=== PATIENT | female | born 1955 | race Caucasian/White ===

== ENCOUNTER 2017-09-24 13:10 | Emergency (ER) | payer BC ==
[2017-09-24] MEDS ORDERED: ONDANSETRON HCL IV 4 MG/2 ML VIAL IV ONE (13:57)
[2017-09-24] MEDS ORDERED: HYDROMORPHONE HCL 2 MG/ML VIAL IVP ONE (13:57)
[2017-09-24] MEDS ORDERED: 0.9 % SODIUM CHLORIDE 1,000 ML BAG IV ONE (13:57)
--- NOTE | 2017-09-24 14:01 | Emergency Department Record ---
History of Present Illness - General Chief complaint: Vomiting Stated complaint: VOMITING Time Seen by Provider: 09/24/17 13:51 Source: Patient Mode of Arrival: Ambulatory Limitations: No limitations - History of Present Illness Initial comments: The patient is here due to a one day hx of frequent nausea, vomiting and then upper abdominal pain. She denies any lower AP, back pain, fever, chills, or dysuria. The patient has no hx of bowel obstruction but has had multiple abdominal surgeries. She does have a hx of Ovarian and Breast CA and last had Chemo 3 weeks ago. There is no reported CP, SOB, GUTHRIE, or confusion. MD complaint: Abdominal pain, Nausea, Vomiting Onset/Timin -: Days(s) Description of Vomiting: Watery - Related Data Home Medications Medication Instructions Recorded Confirmed Last Taken Levocetirizine Dihydrochloride 1 tab PO ASDIR PRN 09/24/17 09/24/17 Unknown [Xyzal] Prochlorperazine Maleate 10 mg PO DAILY 09/24/17 09/24/17 Unknown Promethazine HCl [Phenergan] 12.5 mg PO Q6HR PRN 09/24/17 09/24/17 Unknown Trazodone HCl 50 mg PO QHS 09/24/17 09/24/17 Unknown Warfarin Sodium 1 mg PO DAILY 09/24/17 09/24/17 Unknown Previous Rx's Medication Instructions Recorded Hydrocodone/Acetaminophen [[place] 1 tab PO Q6H PRN #10 tab 06/04/15 5mg/325mg] Sucralfate [Carafate] 1 gm PO QID #28 tablet 09/24/17 Allergies Allergy/AdvReac Type Severity Reaction Status Date / Time adhesive Allergy RASH Verified 09/24/17 14:10 bacitracin Allergy SWELLING Verified 09/24/17 14:10 [From Neosporin (GENERAL) ([id number])] bacitracin zinc Allergy SWELLING Verified 09/24/17 14:10 [From Neosporin (GENERAL) ([id number])] neomycin sulfate Allergy SWELLING Verified 09/24/17 14:10 [From Neosporin (GENERAL) ([id number])] polymyxin B Allergy SWELLING Verified 09/24/17 14:10 [From Neosporin (GENERAL) ([id number])] Travel Screening - Travel/Exposure Within Last 30 Days Have you traveled within the last 30 days?: No - Travel/Exposure Within Last Year Have you traveled outside the [place] in the last year?: No - Additonal Travel Details Have you been exposed to anyone with a communicable illness?: No - Travel Symptoms Symptom Screening: None Review of Systems Constitutional: Denies: Chills, Fever Eyes: Denies: Eye discharge ENT: Denies: Congestion Respiratory: Denies: Cough, Dyspnea Cardiovascular: Denies: Arrhythmia Endocrine: Denies: Fatigue Gastrointestinal: Reports: Abdominal pain, Nausea, Vomiting. Denies: Diarrhea, Other Genitourinary: Denies: Dysuria Musculoskeletal: Denies: Back pain Past Medical History - SOCIAL HISTORY Smoking Status: Light tobacco smoker (<10/day) Alcohol Use: None Drug Use: None - RESPIRATORY Hx Respiratory Disorders: Yes Hx Asthma: Yes - CARDIOVASCULAR Hx Cardio Disorders: Yes Comment:: murmur - NEURO Hx Neuro Disorders: No - GI Hx GI Disorders: Yes Hx Abdominal Pain: Yes Hx Nausea/Vomiting: Yes (vomits almost everyday, sometimes for hours) - Hx Genitourinary Disorders: Yes Hx UTI: Yes - ENDOCRINE Hx Endocrine Disorders: No Comment:: nodule on thyroid - MUSCULOSKELETAL Hx Musculoskeletal Disorders: No - PSYCH Hx Psych Problems: Yes Hx Anxiety: Yes Hx Depression: Yes - HEMATOLOGY/ONCOLOGY Hx Hematology/Oncology Disorders: Yes Hx Cancer: Yes (Right breast, ovarian) Hx Chemotherapy: Yes Family Medical History Any Significant Family History?: Yes Hx Alcohol Use: Brother/Sister Hx Anxiety: Mother, Brother/Sister Hx Cancer: Mother, Brother/Sister, Grandparents Hx Dementia: Grandparents Hx Depression: Mother, Brother/Sister Hx Diabetes: Brother/Sister, Grandparents Hx Resp Disorders: Father Physical Exam - General General Appearance: Alert, Oriented x3, Cooperative, No acute distress - Head Head exam: Atraumatic, Normocephalic, Normal inspection - Eye Eye exam: Normal appearance, PERRL, EOMI - Neck Neck exam: Normal inspection, Full ROM. negative: Tenderness - Respiratory Respiratory exam: Normal lung sounds bilaterally. negative: Respiratory distress - Cardiovascular Cardiovascular Exam: Regular rate, Normal rhythm, Normal heart sounds - GI/Abdominal GI/Abdominal exam: Soft, Tenderness (There is diffuse upper abdominal tenderness.). negative: Distended, Guarding, Rebound, Rigid - Extremities Extremities exam: Normal inspection, Full ROM, Normal capillary refill. negative: Tenderness - Neurological Neurological exam: Alert, Normal gait. negative: Abnormal gait, Motor sensory deficit Course Vital Signs 09/24/17 13:41 Temperature 98.6 F Pulse Rate 92 H Respiratory 16 Rate Blood Pressure 165/85 Pulse Ox 95 - Reevaluation(s) Reevaluation #1: The patient is doing much better at this time. Her AP and nausea are now gone and she is feeling (MUCH) better. On exam her abdomen is very soft and nontender in all 4 quads. I did discuss the need for recheck with her PCP later this week. I also did discuss the blood in the urine which is not a new issue for her but it is slightly worse. She is to see her PCP Dr. Don for recheck later this week and possibly have a Urology Consultation. 09/24/17 16:05 Medical Decision Making - Data Complexity MDM Data: Labs Ordered and/or Reviewed, X-Ray Ordered and/or Reviewed - Lab Data Result diagrams: 09/24/17 14:40 09/24/17 14:40 - Radiology Data Radiology results: Report reviewed (Abd CT: Neg for any acute abnormality. Neg kidney stone, hydro or masses.) Disposition Disposition: Discharge Clinical Impression: Abdominal pain Qualifiers: Abdominal location: unspecified location Qualified Code(s): R10.9 - Unspecified abdominal pain Vomiting Qualifiers: Vomiting type: unspecified Vomiting Intractability: non-intractable Nausea presence: without nausea Qualified Code(s): R11.11 - Vomiting without nausea Disposition: Home, Self-Care Condition: (2) Stable Instructions: Acute Nausea and Vomiting (ED) Additional Instructions: Please continue your regular medicines and add the Carafate as directed. Please see your family doctor later this week for recheck and please show him the blood in the urine. Take your medicines for nausea and return to the ER for any return of the AP, or vomiting, or any fever. Prescriptions: Sucralfate [Carafate] 1 gm PO QID #28 tablet Forms: Patient Portal Access Time of Disposition: 16:13 Quality - Quality Measures Quality Measures: N/A - Blood Pressure Screening View Details: Yes Does Patient Have Any of the Following: No Blood Pressure Classification: Normal BP Reading Systolic Measurement: 117 Diastolic Measurement: 70 Screening for High Blood Pressure: < Normal BP, F/U Not Required > [G9846]
[2017-09-24 14:54] LABS: HEMATOCRIT 28.9 % (35.0-47.0); HEMOGLOBIN 9.3 gm/dl (11.6-16.0); MEAN CELL VOLUME 111.6 fl (81-97); MEAN CORPUSCULAR HEMOGLOBIN 35.9 pg (27-33); MEAN CORPUSCULAR HGB CONC 32.2 g/dl (32-36); MEAN PLATELET VOLUME 8.8 fl (7.4-10.4); PLATELET COUNT 125 K/uL (130-400); RED BLOOD COUNT 2.59 M/uL (3.80-5.40); RED CELL DISTRIBUTION WIDTH 16.3 % (11.5-14.5); WHITE BLOOD COUNT W/O DIFF 7.8 K/uL (4.2-12.2)
[2017-09-24 15:03] LABS: PLATELET ESTIMATE NORMAL (NORMAL)
[2017-09-24 15:04] LABS: ANISOCYTOSIS 1+; HYPOCHROMIA 1+
[2017-09-24 15:07] LABS: BLOOD UREA NITROGEN 8 mg/dL (8-23)
[2017-09-24 15:08] LABS: CREATININE 0.5 mg/dL (0.5-0.9); EST GLOMERULAR FILTRATION RATE > 60 mL/min; TOTAL PROTEIN 7.2 g/dL (6.6-8.7)
[2017-09-24 15:10] LABS: GLUCOSE,RANDOM 152 mg/dL (74-109)
[2017-09-24 15:13] LABS: ALBUMIN 4.5 g/dL (4.0-5.0); ALKALINE PHOSPHATASE 61 U/L (35-104); ALT/SGPT 16 U/L (<33); AST/SGOT 15 U/L (10.0-35.0); LIPASE 13 U/L (13-60)
[2017-09-24 15:15] LABS: BILIRUBIN,DIRECT < 0.2 mg/dL (0-0.3)
[2017-09-24] MEDS ORDERED: POTASSIUM CHLORIDE 20 MEQ/15ML CUP PO ONE (15:23)
[2017-09-24 15:37] LABS: INR 2.3; PARTIAL THROMBOPLASTIN TIME 36.9 SECONDS (24.5-39.1); PROTHROMBIN TIME (PATIENT) 24.6 SECONDS (9.5-12.1)
[2017-09-24] MEDS ORDERED: SUCRALFATE 1 G/10 ML UD PO ONE (15:41)
[2017-09-24 15:50] LABS: URINE APPEARANCE CLEAR; URINE BILIRUBIN NEGATIVE (NEGATIVE); URINE BLOOD LARGE (NEGATIVE); URINE COLOR YELLOW; URINE GLUCOSE (UA) NEGATIVE (NEGATIVE); URINE KETONE TRACE (NEGATIVE); URINE LEUKOCYTE ESTERASE NEGATIVE (NEGATIVE); URINE NITRITE NEGATIVE (NEGATIVE)
[2017-09-24 15:56] LABS: URINE RBC >50 (NONE SEEN); URINE WBC NONE SEEN (0-2/hpf)
[2017-09-24] MEDS ORDERED: HEPARIN SODIUM FLUSH 100 UNITS/ML SYR 5ML IVP ONE (16:05)
--- NOTE | 2017-09-25 07:53 | CT SCAN REPORT ---
EXAM: CT OF THE ABDOMEN AND PELVIS WITHOUT CONTRAST HISTORY: UPPER ABDOMINAL PAIN. TECHNIQUE: CT of the abdomen and pelvis was performed without oral or IV contrast. This limits evaluation of the bowel and solid visceral organs. Comparison: Prior CT 03/15/17. FINDINGS: Limited evaluation of the lung bases is unremarkable. The osseous structures are grossly intact. Small hiatal hernia. Fatty infiltrative change to the liver. Limited evaluation of the spleen, adrenal glands, pancreas and kidneys is unremarkable. Surgical clips in the retroperitoneum. The gallbladder is present. Fat containing anterior abdominal wall hernia near the midline. No gross evidence for bowel obstruction. No free air or free fluid. Sigmoid diverticulosis. No CT evidence for diverticulitis. Surgical clips left inguinal region. There is a normal appendix. No pericecal inflammation. IMPRESSION: 1. SIGMOID DIVERTICULOSIS. NO CT EVIDENCE FOR DIVERTICULITIS. 2. POST SURGICAL CHANGES. 3. FATTY INFILTRATIVE CHANGE TO THE LIVER. 4. SMALL HIATAL HERNIA. FAT CONTAINING ANTERIOR ABDOMINAL WALL HERNIA NEAR THE MIDLINE. JOB NUMBER: [id number] MTDD
== END 2017-09-24 16:31 | disposition home or self-care (01) ==
LOC: ER 13:10
DX: R10.10 Upper abdominal pain, unspecified (principal); R11.2 Nausea with vomiting, unspecified; R31.29 Other microscopic hematuria; C50.919 Malignant neoplasm of unspecified site of unspecified female breast; C79.60 Secondary malignant neoplasm of unspecified ovary; F17.210 Nicotine dependence, cigarettes, uncomplicated
CPT/HCPCS: 99284 ×2; 96374; 96375; 96361; 83690; 85730; 85610; 80076; 80048; 81001; 85027; 74176; J2405; J1642; J1170; J7030

== ENCOUNTER 2017-09-27 09:36 | Observation (INO) | payer BC ==
[2017-09-27] MEDS ORDERED: ONDANSETRON HCL IV 4 MG/2 ML VIAL IV ONE (09:59)
[2017-09-27] MEDS ORDERED: 0.9 % SODIUM CHLORIDE 1,000 ML BAG IV ONE (09:59)
[2017-09-27] MEDS ORDERED: PROMETHAZINE HCL 25 MG in 0.9 % SODIUM CHLORIDE 100ML 100 ML IVPB ONE (10:10)
[2017-09-27] MEDS ORDERED: HYDROMORPHONE HCL 2 MG/ML VIAL IVP ONE ×3 (10:10→12:10)
--- NOTE | 2017-09-27 10:12 | Emergency Department Record ---
History of Present Illness - General Chief complaint: Vomiting Stated complaint: VOMITING Time Seen by Provider: 09/27/17 09:48 Source: Patient, RN notes reviewed Mode of Arrival: Ambulatory - History of Present Illness Initial comments: patient states epigastric abdominal pain which stated at midnight last night and similiar thing happened 3 days ago and was here monday and had a CT scan of abd which was negative than and her potassium slightly low and she was given potassium 40 mcq monday and she takes potassium pills. Onset/Timin -: Days(s) Description of Vomiting: Watery Severity: Moderate Severity scale (1-10): 10 Quality: Aching - Related Data Previous Rx's Medication Instructions Recorded Hydrocodone/Acetaminophen [[place] 1 tab PO Q6H PRN #10 tab 06/04/15 5mg/325mg] Sucralfate [Carafate] 1 gm PO QID #28 tablet 09/24/17 Allergies Allergy/AdvReac Type Severity Reaction Status Date / Time adhesive Allergy RASH Verified 09/27/17 09:48 bacitracin Allergy SWELLING Verified 09/27/17 09:48 [From Neosporin (GENERAL) ([id number])] bacitracin zinc Allergy SWELLING Verified 09/27/17 09:48 [From Neosporin (GENERAL) ([id number])] neomycin sulfate Allergy SWELLING Verified 09/27/17 09:48 [From Neosporin (GENERAL) ([id number])] polymyxin B Allergy SWELLING Verified 09/27/17 09:48 [From Neosporin (GENERAL) ([id number])] Travel Screening - Travel/Exposure Within Last 30 Days Have you traveled within the last 30 days?: No - Travel/Exposure Within Last Year Have you traveled outside the [place] in the last year?: No - Additonal Travel Details Have you been exposed to anyone with a communicable illness?: No - Travel Symptoms Symptom Screening: None Review of Systems Reviewed: No additional complaints except as noted below Constitutional: Reports: As per HPI. Denies: Chills, Fever, Malaise, Night sweats, Weakness, Weight change Eyes: Reports: As per HPI. Denies: Eye discharge, Eye pain, Photophobia, Vision change ENT: Reports: As per HPI. Denies: Congestion, Dental pain, Ear pain, Epistaxis , Hearing loss, Throat pain Respiratory: Reports: As per HPI. Denies: Cough, Dyspnea, Hemoptysis, Stridor, Wheezes Cardiovascular: Reports: As per HPI. Denies: Arrhythmia, Chest pain, Dyspnea on exertion, Edema, Murmurs, Orthopnea, Palpitations, Paroxysmal nocturnal dyspnea, Rheumatic Fever, Syncope Endocrine: Reports: As per HPI. Denies: Fatigue, Heat or cold intolerance, Polydipsia, Polyuria Gastrointestinal: Reports: As per HPI, Abdominal pain, Nausea, Vomiting. Denies : Constipation, Diarrhea, Hematemesis, Hematochezia, Melena Genitourinary: Reports: As per HPI. Denies: Abnormal menses, Discharge, Dyspareunia, Dysuria, Frequency, Hematuria, Incontinence, Retention, Urgency Musculoskeletal: Reports: As per HPI. Denies: Arthralgia, Back pain, Gout, Joint swelling, Myalgia, Neck pain Skin: Reports: As per HPI. Denies: Bruising, Change in color, Change in hair/ nails, Lesions, Pruritus, Rash Neurological: Reports: As per HPI. Denies: Abnormal gait, Confusion, Headache, Numbness, Paresthesias, Seizure, Tingling, Tremors, Vertigo, Weakness Psychiatric: Reports: As per HPI. Denies: Anxiety, Auditory hallucinations, Depression, Homicidal thoughts, Suicidal thoughts, Visual hallucinations Hematological/Lymphatic: Reports: As per HPI. Denies: Anemia, Blood Clots, Easy bleeding, Easy bruising, Swollen glands Past Medical History - SOCIAL HISTORY Smoking Status: Former smoker - RESPIRATORY Hx Respiratory Disorders: Yes Hx Asthma: Yes - CARDIOVASCULAR Hx Cardio Disorders: Yes Comment:: murmur - NEURO Hx Neuro Disorders: No - GI Hx GI Disorders: Yes Hx Abdominal Pain: Yes Hx Nausea/Vomiting: Yes (vomits almost everyday, sometimes for hours) - Hx Genitourinary Disorders: Yes Hx UTI: Yes - ENDOCRINE Hx Endocrine Disorders: No Comment:: nodule on thyroid - MUSCULOSKELETAL Hx Musculoskeletal Disorders: No - PSYCH Hx Psych Problems: Yes Hx Anxiety: Yes Hx Depression: Yes - HEMATOLOGY/ONCOLOGY Hx Hematology/Oncology Disorders: Yes Hx Cancer: Yes (Right breast, ovarian) Hx Chemotherapy: Yes (08/2017) Family Medical History Any Significant Family History?: Yes Hx Alcohol Use: Brother/Sister Hx Anxiety: Mother, Brother/Sister Hx Cancer: Mother, Brother/Sister, Grandparents Hx Dementia: Grandparents Hx Depression: Mother, Brother/Sister Hx Diabetes: Brother/Sister, Grandparents Hx Resp Disorders: Father Physical Exam - General General Appearance: Alert, Oriented x3, Cooperative, Mild distress - Head Head exam: Normal inspection - Eye Eye exam: Normal appearance, PERRL Pupils: Normal accommodation - ENT ENT exam: Normal exam, Mucous membranes moist, Normal external ear exam, Normal orophraynx, TM's normal bilaterally Ear exam: Normal external inspection. negative: External canal tenderness Nasal Exam: Normal inspection. negative: Discharge, Sinus tenderness Mouth exam: Normal external inspection, Tongue normal Teeth exam: Normal inspection. negative: Dental caries Throat exam: Normal inspection. negative: Tonsillar erythema, Tonsillar exudate - Neck Neck exam: Normal inspection, Full ROM. negative: Tenderness - Respiratory Respiratory exam: Normal lung sounds bilaterally. negative: Respiratory distress - Cardiovascular Cardiovascular Exam: Regular rate, Normal rhythm, Normal heart sounds - GI/Abdominal GI/Abdominal exam: Soft, Normal bowel sounds, Tenderness (epigastric pain). negative: Distended, Guarding, Rebound, Rigid - Rectal Rectal exam: Deferred - exam: Deferred - Extremities Extremities exam: Normal inspection, Full ROM, Normal capillary refill. negative: Tenderness - Back Back exam: Reports: Normal inspection, Full ROM. Denies: Muscle spasm, Rash noted, Tenderness - Neurological Neurological exam: Alert, Normal gait, Oriented X3, Reflexes normal - Psychiatric Psychiatric exam: Normal affect, Normal mood - Skin Skin exam: Dry, Intact, Normal color, Warm Course Vital Signs 09/27/17 09:38 Temperature 98.3 F Pulse Rate 102 H Respiratory 20 Rate Blood Pressure 193/97 Pulse Ox 94 L Medical Decision Making - Lab Data Result diagrams: 09/27/17 10:02 09/27/17 10:02 Disposition Clinical Impression: Hypokalemia, Hypomagnesemia Abdominal pain Qualifiers: Abdominal location: epigastric Qualified Code(s): R10.13 - Epigastric pain Decision to Admit: Admit from ER Condition: (2) Stable Forms: Patient Portal Access Time of Disposition: 12:55 Quality - Quality Measures Quality Measures: N/A - Blood Pressure Screening Does Patient Have Any of the Following: No Blood Pressure Classification: Hypertensive Reading Systolic Measurement: 193 Diastolic Measurement: 97 Screening for High Blood Pressure: < First Hypertensive BP, F/U Documented > [ G8950] First Hypertensive Follow-up Interventions: Referral to alternative/primary care provider.
[2017-09-27 10:17] LABS: HEMATOCRIT 29.9 % (35.0-47.0); HEMOGLOBIN 9.9 gm/dl (11.6-16.0); MEAN CELL VOLUME 109.5 fl (81-97); MEAN CORPUSCULAR HGB CONC 33.1 g/dl (32-36); MEAN PLATELET VOLUME 9.5 fl (7.4-10.4); PLATELET COUNT 150 K/uL (130-400); RED BLOOD COUNT 2.73 M/uL (3.80-5.40); RED CELL DISTRIBUTION WIDTH 15.7 % (11.5-14.5); WHITE BLOOD COUNT W/O DIFF 7.2 K/uL (4.2-12.2)
[2017-09-27] MEDS ORDERED: MAGNESIUM HYDROXIDE/AL HYDROX 30 ML, LIDOCAINE VISC 2% 15ML 15 ML PO ONE ×2 (10:18)
[2017-09-27 10:21] LABS: MEAN CORPUSCULAR HEMOGLOBIN 36.2 pg (27-33)
[2017-09-27 10:30] LABS: BLOOD UREA NITROGEN 8 mg/dL (8-23); CREATININE 0.6 mg/dL (0.5-0.9); EST GLOMERULAR FILTRATION RATE > 60 mL/min
[2017-09-27 10:31] LABS: ANISOCYTOSIS 1+; HYPOCHROMIA 1+; PLATELET ESTIMATE NORMAL (NORMAL); TOTAL PROTEIN 7.3 g/dL (6.6-8.7)
[2017-09-27 10:33] LABS: GLUCOSE,RANDOM 170 mg/dL (74-109)
[2017-09-27 10:35] LABS: ALT/SGPT 20 U/L (<33)
[2017-09-27 10:36] LABS: ALBUMIN 4.5 g/dL (4.0-5.0); ALKALINE PHOSPHATASE 68 U/L (35-104); AST/SGOT 18 U/L (10.0-35.0); BILIRUBIN,DIRECT < 0.2 mg/dL (0-0.3); LIPASE 13 U/L (13-60)
[2017-09-27] MEDS ORDERED: POTASSIUM CHLORIDE 20 MEQ TABLET PO ONE ×2 (11:37→21:09)
[2017-09-27] MEDS ORDERED: MAGNESIUM SULFATE 16 MEQ in 0.9 % SODIUM CHLORIDE 100ML 100 ML IV ONE (11:37)
[2017-09-27] MEDS: SOD CHLOR 0.9% WITH KCL 40MEQ 40 MEQ/1,000 ML IV.SOLN IV ONE ×2 (12:17→16:56)
[2017-09-27 12:40] LABS: URINE APPEARANCE CLEAR; URINE BILIRUBIN NEGATIVE (NEGATIVE); URINE BLOOD LARGE (NEGATIVE); URINE COLOR YELLOW; URINE GLUCOSE (UA) NEGATIVE (NEGATIVE); URINE KETONE NEGATIVE (NEGATIVE); URINE LEUKOCYTE ESTERASE NEGATIVE (NEGATIVE); URINE NITRITE NEGATIVE (NEGATIVE); URINE PROTEIN NEGATIVE (NEGATIVE); URINE UROBILINOGEN 0.2 E.U./dL (0.20 - 1.00)
[2017-09-27 12:45] LABS: URINE EPITHELIAL CELLS 0 - 2 (FEW); URINE WBC NONE SEEN (0-2/hpf)
[2017-09-27] MEDS ORDERED: ONDANSETRON HCL IV 4 MG/2 ML VIAL IVP PRN (14:52)
[2017-09-27] MEDS ORDERED: PROMETHAZINE HCL 25 MG in 0.9 % SODIUM CHLORIDE 100ML 100 ML IVPB PRN (14:52)
[2017-09-27] MEDS ORDERED: SOD CHLOR 0.9% WITH KCL 40MEQ 40 MEQ/1,000 ML IV.SOLN IV ONE (14:52)
[2017-09-27] MEDS ORDERED: ACETAMINOPHEN 325 MG TAB PO PRN (14:52)
[2017-09-27] MEDS ORDERED: HYDROMORPHONE HCL 2 MG/ML VIAL IVP PRN (14:52)
[2017-09-27 17:23] LABS: INR 2.3; PROTHROMBIN TIME (PATIENT) 25.5 SECONDS (9.5-12.1)
[2017-09-27] MEDS ORDERED: TRAZODONE 50 MG TABLET PO SCH (20:30)
[2017-09-27] MEDS ORDERED: WARFARIN 1 MG TABLET PO SCH (20:30)
[2017-09-27] MEDS ORDERED: WARFARIN 5 MG TAB PO SCH (20:30)
[2017-09-27] MEDS ORDERED: BREO (FLUTICASONE/VILANTEROL) 200MCG/25MCG INHALER INH SCH (20:30)
[2017-09-27] MEDS: LORATADINE 10 MG TABLET PO SCH (21:38)
[2017-09-28] MEDS ORDERED: HEPARIN SODIUM FLUSH 100 UNITS/ML SYR 5ML IVP PRN (05:47)
[2017-09-28 06:33] LABS: INR 2.5; PROTHROMBIN TIME (PATIENT) 27.5 SECONDS (9.5-12.1)
[2017-09-28 06:39] LABS: BLOOD UREA NITROGEN 9 mg/dL (8-23); CREATININE 0.7 mg/dL (0.5-0.9); EST GLOMERULAR FILTRATION RATE > 60 mL/min; GLUCOSE,RANDOM 99 mg/dL (74-109)
[2017-09-28 06:56] LABS: ALBUMIN 3.4 g/dL (4.0-5.0); AST/SGOT 18 U/L (10.0-35.0); BILIRUBIN,DIRECT < 0.2 mg/dL (0-0.3); TOTAL PROTEIN 5.7 g/dL (6.6-8.7)
[2017-09-28 06:57] LABS: ALKALINE PHOSPHATASE 51 U/L (35-104); ALT/SGPT 19 U/L (<33); LIPASE 16 U/L (13-60)
--- NOTE | 2017-09-28 07:17 | RADIOLOGY REPORT ---
EXAM: ABDOMEN, TWO VIEWS HISTORY: GENERALIZED ABDOMINAL PAIN WITH NAUSEA AND VOMITING FOR TWO DAYS. HISTORY OF OVARIAN MALIGNANCY. TECHNIQUE: AP supine and upright views of the abdomen were obtained. Comparison: CT of the abdominal and pelvis without contrast dated 09/24/17. FINDINGS: The bowel gas pattern is normal. No mass, organomegaly, or suspicious calcification is seen. Small round calcifications are again noted within the inferior pelvis likely vascular in origin. Surgical clips are scattered within the pelvis, mid to lower paraspinal lumbar region and proximal left thigh. No free intraperitoneal air. There are mild degenerative changes scattered throughout the visualized spine associated with mild levoconvex scoliosis centered at the L2-L3 level. Mild degenerative changes of each hip. No definite lytic or blastic bone lesion. IMPRESSION: 1. NO EVIDENCE OF MECHANICAL BOWEL OBSTRUCTION OR FREE INTRAPERITONEAL AIR. 2. POST SURGICAL CHANGES. 3. DEGENERATIVE CHANGES OF THE SPINE AND HIPS. JOB NUMBER: [id number] MTDD
[2017-09-28 07:29] LABS: HEMATOCRIT 24.6 % (35.0-47.0); HEMOGLOBIN 7.8 gm/dl (11.6-16.0); MEAN CORPUSCULAR HEMOGLOBIN 36.4 pg (27-33); MEAN CORPUSCULAR HGB CONC 31.7 g/dl (32-36); MEAN PLATELET VOLUME 9.4 fl (7.4-10.4); PLATELET COUNT 139 K/uL (130-400); RED BLOOD COUNT 2.14 M/uL (3.80-5.40); RED CELL DISTRIBUTION WIDTH 16.5 % (11.5-14.5); WHITE BLOOD COUNT W/O DIFF 4.7 K/uL (4.2-12.2)
[2017-09-28] MEDS ORDERED: ENOXAPARIN 40 MG/0.4 ML SYR SQ SCH (10:00)
[2017-09-28] MEDS: LORATADINE 10 MG TABLET PO SCH (10:42)
[2017-09-28 15:25] LABS: HEMATOCRIT 26.5 % (35.0-47.0); HEMOGLOBIN 8.3 gm/dl (11.6-16.0)
--- NOTE | 2017-09-28 18:06 | Discharge Note ---
VTE H&P Assessment - Risk for VTE Risk for VTE: No Risk Level: Very Low Risk Assessment Date: 09/27/17 Risk Assessment Time: 19:00 VTE Orders Placed or Will Be Placed: No VTE Reason for No Prophylaxis: Not Indicated Discharge Medications - Discharge Medications Home Medications: Ambulatory Orders Albuterol Sulfate [Proair Hfa] 1 - 2 inh INH ASDIR 06/03/15 [Last Taken 1 Day Ago ~09/26/17] Fluticasone/Salmeterol [Advair Hfa 115-21 Mcg Inhaler] 1 inh INH DAILY 06/03/15 [Last Taken 1 Day Ago ~09/26/17] Hydrocodone/Acetaminophen [[place] 5mg/325mg] 1 tab PO Q6H PRN #10 tab 06/04/15 [ Last Taken 1 Day Ago ~09/26/17] Levocetirizine Dihydrochloride [Xyzal] 1 tab PO ASDIR PRN 09/24/17 [Last Taken 1 Day Ago ~09/26/17] Prochlorperazine Maleate 10 mg PO DAILY 09/24/17 [Last Taken 1 Day Ago ~09/26/17 ] Promethazine HCl [Phenergan] 12.5 mg PO Q6HR PRN 09/24/17 [Last Taken 1 Day Ago ~09/26/17] Sucralfate [Carafate] 1 gm PO QID #28 tablet 09/24/17 [Last Taken 1 Day Ago ~] Trazodone HCl 50 mg PO QHS 09/24/17 [Last Taken 1 Day Ago ~09/26/17] Warfarin Sodium 6 mg PO DAILY 09/24/17 [Last Taken 1 Day Ago ~09/26/17] Hydrocodone/Acetaminophen [[place] 10-325 Tablet] 1 tab PO Q8HR PRN 09/27/17 [ Last Taken Unknown] Ondansetron [Zofran Odt] 4 mg PO Q6HR PRN 09/27/17 [Last Taken Unknown] Discharge Note - Date Date of Discharge Note: 09/28/17 Disposition: Home, Self-Care Condition: (2) Stable Additional Instructions: follow up with Dr. Don in 1-2 weeks follow up with Dr. haywood for evaluation of megablastic anemia gradually increase diet Forms: Patient Portal Access Activity at Discharge: Increase Activity as Tolerated Diet at Discharge: Advance to Usual Diet
--- NOTE | 2017-09-29 09:50 | History and Physical Report ---
DATE OF EVALUATION: 09/27/2017 DATE OF ADMISSION: 09/27/2017 CHIEF COMPLAINT: Epigastric abdominal pain; vomiting for 3 days. HISTORY OF THE PRESENT ILLNESS: She was seen in the Emergency Department [address] of the abdomen was done, which was negative. Potassium was slightly low at 3. She was given potassium 40 mEq and potassium pills. She came in and was evaluated in the Emergency Department by myself and was diagnosed with hypokalemia, hypomagnesemia, dehydration, epigastric abdominal pain, ovarian cancer, and breast cancer. PAST MEDICAL HISTORY: Breast cancer, ovarian cancer. Some metastases present. She was not able to tell me exactly what. History of asthma. History of a heart murmur. She has a history of these episodes happening frequently. She vomits almost every day. She has history of urinary tract infections. Nodule in her thyroid. She has anxiety and depression. History of right breast cancer and ovarian cancer in August 2017. PAST SURGICAL HISTORY: Lymph node and mastectomy on the right side. Tubal ligation. Vein ligation bilaterally of her legs. Hysterectomy in July 2014. Repair of abdominal surgical wound in 2014. MEDICATIONS ON ADMISSION: [place] 10 mg every 8 hours p.r.n., Zofran 4 mg every 6 hours, Coumadin 6 mg daily, trazodone 50 mg at bedtime, Carafate 1 gram q.i.d., Phenergan 12.5 every 6 hours p.r.n., Compazine 10 mg every 8 hours p.r.n., Xyzal 1 tab p.r.n., [place] 5 mg every 6 hours p.r.n. but it is either the 5 or the 10 depending on how she is doing, Advair 115/21 one puff b.i.d., ProAir 1-2 puffs every 4 hours p.r.n. ALLERGIES: Adhesive, bacitracin, zinc, neomycin sulfate, polymyxin B. FAMILY PSYCHOSOCIAL HISTORY: Alcohol use in brother and sister. Mother has anxiety. Brother, sister, and mother have anxiety. Cancer in the mother, brother, sister, grandparents. Dementia in the grandparents. Mother has depression. Diabetes in brother, sister, and grandparents. Father has respiratory disorders. REVIEW OF SYSTEMS: HEENT: No upper respiratory infection symptoms, cough, cold, or congestion. Cardiovascular: No chest pain, palpitations, or arrhythmias. Respiratory: No cough, cold or congestion. Gastrointestinal: See Chief Complaint. She has epigastric abdominal pain and vomiting. Genitourinary: No dysuria, hematuria, frequency, or burning on urination. Musculoskeletal: No joint or bony abnormalities. Neurologic: No CVA, paralysis, or paresthesias. Endocrine: No diabetes or thyroid disease. Integument: No rash, ulcers, changes in moles, or yellow skin. PHYSICAL EXAMINATION: VITAL SIGNS: Height is 5'6". Weight is 281 pounds. Temperature 98.3, pulse 102, blood pressure 193/97, respiratory rate 20, pulse ox 94% on room air. HEENT: Pupils equal, round, and reactive to light and accommodation. Extraocular muscles intact. Throat is clear. Nose is clear. Tympanic membranes [place]. NECK: Supple. No jugular venous distention. No hepatojugular reflux. No carotid bruits. Thyroid is smooth. CARDIOVASCULAR: Regular rate and rhythm without murmurs, clicks, rubs, or gallops. RESPIRATORY: Clear to auscultation and percussion. ABDOMEN: Epigastric pain on palpation. No rebound or rigidity. Bowel sounds active. EXTREMITIES: No pitting edema. No cyanosis or clubbing. Full range of motion. Peripheral pulses good. BREASTS: Deferred. GYNECOLOGIC: Deferred. RECTAL: Deferred. GENITALIA: Normal female genitalia. NEUROLOGIC: Cranial nerves II-XII intact. No gross deficits. Sensation normal. Strength normal. Deep tendon reflexes equal bilaterally. Babinski is negative. MENTAL STATUS: Alert and oriented x3. IMPRESSION: 1. Vomiting. 2. Hypokalemia. 3. Hypomagnesemia. 4. Megaloblastic anemia. 5. Ovarian and breast cancer. Her oncologist is Dr. Benítez. Her family doctor is Dr. Don. PLAN: IV fluids and reevaluation in the morning. Correction of the magnesium with Mag-Ox 16 mEq, just 2 grams. Correction of the potassium with oral and IV potassium. She had an acute abdominal x-ray. No evidence of mechanical bowel obstruction or free or intraperitoneal air. Postsurgical changes. Degenerative changes of the spine and hips. Her EKG unremarkable. Normal sinus rhythm. No acute changes. MTDD
--- NOTE | 2017-09-29 09:50 | Discharge Summary ---
DATE OF ADMISSION: 09/27/2017 DATE OF DISCHARGE: 09/28/2017 at 6 p.m. DISCHARGE DIAGNOSES: 1. Vomiting. 2. Hypokalemia, resolved. 3. Hypomagnesemia, resolved. 4. Dehydration, resolved. 5. Megaloblastic anemia. Folate and B12 were pending at time of discharge. Labs now revealed B12 was normal, slightly elevated at 1426. Folate is normal at 7.07. Homocysteine and methylmalonic acid were pending and sent out. 6. Ovarian and breast cancer. Oncologist is Dr. Benítez. ATTENDING PHYSICIAN: Jeffry Santos DO REASON FOR HOSPITALIZATION: Vomiting, hypokalemia, hypomagnesemia, anemia, ovarian and breast cancer, unable to send home. This patient was switched to an Observation Patient because of her improvement. At my reevaluation, she is feeling much better, tolerating clear liquids, and her epigastric pain is gone. SIGNIFICANT FINDINGS: In the Emergency Department, potassium was 2.7, magnesium was 1. After correction, the potassium was 3.7, magnesium was 1.8. The BUN normal last night in the ER, and it went up to 9 today. Creatinine was 0.6 and went up to 0.7 today. Glucose was 99 on discharge. Hepatic function panel was unremarkable. Lipase was 16. Urine showing rbc's in the urine of 7-10. No wbc's. Hemoccult stool was not obtained. THERAPY PROVIDED: The patient was given IV fluids, oral potassium, IV potassium along with oral IV magnesium. HOSPITAL COURSE: Improved dramatically. He is feeling much better. CONDITION AT DISCHARGE: Much improved, and patient would like to go home. She is tolerating clear liquids nicely. DISCHARGE INSTRUCTIONS: Follow up with Dr. Don in 1-2 weeks. Follow up with Dr. Benítez as planned 10/09/2017. Continue her home medications which are Coumadin 6 mg a day. Coumadin level was good in the hospital here. PT/INR was 2.5. [place] 5 mg every 6 hours p.r.n., Zofran 4 mg every 6 hours, trazodone 50 mg at bedtime, Carafate 1 gram q.i.d., Compazine 12.5 every 6 hours p.r.n., Xyzal 1 tab daily p.r.n., Advair HFA 115/21 one puff b.i.d., ProAir 1-2 puffs every 4 hours p.r.n. MTDD
== END 2017-09-28 19:15 | disposition home or self-care (01) ==
LOC: ER 09:36 → MEDSURG 14:31 → INTOOBSV 14:31
PROVIDERS: ADMIT Emergency Medicine; ATTEND Emergency Medicine
DX: R10.13 Epigastric pain (principal); E87.6 Hypokalemia; E83.42 Hypomagnesemia; C50.911 Malignant neoplasm of unspecified site of right female breast; C56.9 Malignant neoplasm of unspecified ovary; J45.909 Unspecified asthma, uncomplicated; E04.1 Nontoxic single thyroid nodule
CPT/HCPCS: 99285 ×2; 96376; 96365; 96366; 96375; 83735 ×2; 83690 ×2; 85018; 85014; 85610 ×2; 80076 ×2; 80048 ×2; 81001; 82607; 82746; 85027 ×2; 74019; 94640; 93005; G0378 ×2; J2405; J1170; J3490; 99217; 99220; J2550; J7030

== ENCOUNTER 2018-08-16 06:24 | Day surgery (SDC) | payer BC ==
[2018-08-16] MEDS ORDERED: PROPOFOL 10 MG/ML VIAL IV ONE (06:25)
[2018-08-16] MEDS ORDERED: LIDOCAINE 2% MDV (20MG/ML) 20ML VIAL IV ONE (06:25)
[2018-08-16] MEDS ORDERED: FENTANYL PF 100MCG/2ML VIAL IV ONE (06:25)
--- NOTE | 2018-08-17 20:36 | Operative Note ---
OPERATION: 1. ESOPHAGOGASTRODUODENOSCOPY with biopsy. 2. COLONOSCOPY. PREOPERATIVE DIAGNOSIS: Iron deficiency anemia. POSTOPERATIVE DIAGNOSES: 1. Rule out occult celiac, otherwise normal upper endoscopy. 2. Sigmoid diverticulosis. SPECIMENS: Random duodenal. ESTIMATED BLOOD LOSS: Minimal. COMPLICATIONS: None apparent. PREPARATION QUALITY: Excellent. PROCEDURE: After informed consent was obtained from the patient, she was placed in the left lateral decubitus position in the endoscopy suite, sedated and monitored by the department of anesthesia. A well-lubricated [id number] gastroscope was placed in the posterior oropharynx under direct visualization and passed to the proximal esophagus. The endoscope was advanced through the proximal, mid, and distal esophagus. The GE junction and esophagus were unremarkable. The gastric body, antrum, pylorus, duodenal bulb, and sweep were unremarkable. J- turn views of the proximal stomach were unrevealing as well. The endoscope was advanced back into the duodenum where random biopsies were obtained to rule out celiac. The endoscope was retracted through the stomach and esophagus. No new findings or abnormalities were identified. Digital rectal exam was unremarkable. A well-lubricated [id number] colonoscope was inserted into the rectum and advanced to the cecum. Preparation quality was excellent. The cecum and cecal bulb were identified several times, reinsertion several times to inspect the cecum in multiple views and no abnormalities were noted. The ileocecal valve appeared unremarkable. The ascending colon, transverse colon, descending colon, sigmoid colon, and rectum were also unremarkable other than scattered diverticula of moderate severity noted in the sigmoid colon. J-turn views of the anorectum were unrevealing. The endoscope was straightened, the rectal ampulla deflated, and the endoscope was removed. RECOMMENDATIONS: The patient should undergo small bowel imaging but at this point, she is Hemoccult negative and I see no obvious source for GI blood loss to explain her iron deficiency. Perhaps it is a malabsorption issue, or another source is possible. As always, thank you for allowing me to participate in the healthcare of your patients. CC: DO Dr. Jeyson Urena
== END 2018-08-16 08:58 | disposition home or self-care (01) ==
LOC: HOP 06:24
PROVIDERS: ATTEND Internal Medicine Gastroenterology
DX: D50.9 Iron deficiency anemia, unspecified (principal); K57.30 Diverticulosis of large intestine without perforation or abscess without bleeding; K31.89 Other diseases of stomach and duodenum; C80.1 Malignant (primary) neoplasm, unspecified; I82.409 Acute embolism and thrombosis of unspecified deep veins of unspecified lower extremity; I26.99 Other pulmonary embolism without acute cor pulmonale
CPT/HCPCS: 45378; 43239; 00813; J3010